=== PATIENT | female | born 2000 | race Caucasian/White ===

== ENCOUNTER → 2020-03-06 14:53 | Outpatient (CLI) | payer SELFPAY | PROVIDERS: Visit Provider Obstetrics & Gynecology | DX: N83.202 Unspecified ovarian cyst, left side (principal) | CPT/HCPCS: 36415; 86304 ==

== ENCOUNTER 2020-03-10 07:07 | Day surgery (SDC) | payer SELFPAY, OTHER ==
--- NOTE | 2020-03-09 17:10 | HP.PCM_ITS ---
History and Physical Date of Admission: 03/10/20 Surgical History and Physical Keyonna Montano, a 19 year old female 0 0 0 0 0, presents for Mini-Lap, possible LSO on at . -- Large Left Pelvic Cyst -- Keyonna is here with LLQ pain. Began suddenly 02-24-20. Went to a clinic closer to home. She was sent to where she had an US and a CT scan. Was told she has an ovarian cyst and to follow up here. No associated vag bleeding. Does have craming and the pain is intermittently and severe. Not sexually active, single. Abdominal pain; left side which began 02-24-20. Keyonna claims it started suddenly and has been present 2 weeks. It occurs intermittantly. It is located in the LLQ of the abdomen. Keyonna characterizes the quality sharp. Associated signs and symptoms are vomiting. Additional comments are: Had CT and US at .; Additional comments are: U/S in our shows 15 cm simple cyst left adnexa (? if attached to ovary); normal uterus and right ovary; 8 cm complex cystic left ovary. MEDICATIONS HISTORY: Patient is also takin. No Meds ALLERGIES: No Known Drug Allergies Infections - Chicken pox and Whooping Cough Illnesses - none Accidents - None Hospitalizations - None Review of Systems: GENERAL - Denies fever, or chills SKIN - Denies skin changes EYES - Denies visual changes EARS - Denies difficulty hearing NOSE - Denies nasal congestion or bleeding MOUTH - Denies sore throat or difficulty swallowing NECK - Denies pain or swelling RESPIRATORY - Denies shortness of breath or wheezing CARDIOVASCULAR - Denies palpitations or chest pain GASTROINTESTINAL - Denies nausea, vomiting, diarrhea, constipation GENITOURINARY - Denies dysuria, frequency of urination, incontinence of urine MUSCULOSKELETAL - Denies joint or muscle pain NEUROLOGICAL - Denies localized numbness or weakness PSYCHIATRIC - Denies depression or anxiety ENDOCRINE - Denies heat or cold intolerance, weight loss or gain HEMATO-IMMUNOLOGIC - Denies excessive bleeding with cuts SOCIAL HISTORY: Alcohol Use - None Smoking - Never Diet - no special diet Lifestyle - single Exercise - active Employer - [employer] Job Description - [employer] Illicit Drug Use - None Sexual Activity - sexually inactive Residence - lives with parents Place of - Mobile Hours Worked - 40 hours per week Control - Not active FAMILY HISTORY: nc MENSTRUAL HISTORY: LMP Known?- Definite Amount/Duration - 5-6 DAYS, Regularity - Regular, Frequency - every 8 weeks days, LMP - 03/06/20, Age Onset Menarche - 13 PAST PREGNANCIES: Total Pregnancies - 0; Full Term Pregnancies - 0; Premature - 0; Abortions, Induced - 0; Abortions, Spontaneous - 0; Ectopics - 0; Multiple Births - 0; Living Children - 0 PHYSICAL EXAM BP- 116/74 Sitting, Right arm, regular cuff Weight- 123.18218 lbs Height- 63.5 inch BMI:21.49 CONSTITUTIONAL - NAD, well nourished, and well developed SKIN - No rash, lesions, or ulcers HEENT - Normocephalic, PERRLA, EOMI NECK - No nodes, no nuchal rigidity and thyroid normal size and texture LYMPH NODES - Palpation of lymph nodes in neck and groins within normal limits LUNGS - CTA x2 without wheezes, crackles or rales CARDIAC - Regular rate and rhythm without rubs, murmurs, or gallops ABDOMEN - moderately tender cystic mass apparent and 22 week size EXTREMITIES - No edema or calf tenderness NEUROLOGICAL - Cranial nerves II-XII grossly intact PSYCHIATRIC - A and O to time, place, person, mood and affect ASSESSMENT/PLAN: 1. Generalized Intra-abdominal And Pelvic Swelling, Mass And Lump Likely large benign left ovarian cyst with possible intermittent torsion. Await CA-125. If benign, plan Mini-Lap and possible LSO. Discussed RBAs and all questions answered.
[2020-03-10] VITALS (13 sets, daily range): BP systolic 116–148; BP diastolic 60–109; PULSE 79–114; RESP 14–16; TEMP 36.1–37.3; O2SAT 99–100; BMI 20.9
--- NOTE | 2020-03-10 | OV_PTH ---
PATIENT: EZ DELANEY [place] [facility] [place][id number] AGE/SX: 19/F ROOM: RE03/10/[address]: Dr. Carlos Alvarenga MD : 2000 BED: DIS: 03/10/2020 SPEC #: [id number] RECD: 03/10/20 13:55 STATUS: LINDSAY МАРИНА #: [id number] SUKI: 03/10/20 00:[address]: Carlos Alvarenga DEPT: SURGICAL PATHOLOGY RECD BY: Jt Roberts ENTERED: 03/10/20 13:55 SP TYPE: OVARY OTHR DR: Dr. Carly Mcdaniels MD Tissues: Left ovary Procedures: Surgery Specimen Level V HEADER OPERATION: Laparotomy, salpingo-oophorectomy and ovarian cystectomy PRE-OP DIAGNOSIS: Generalized intra-abdominal and pelvic swelling, mass and lump TISSUE SUBMITTED: Left ovary, fallopian tube, ovarian cyst MICROSCOPIC DIAGNOSIS Left ovary, ovarian cyst and fallopian tube, salpingo-oophorectomy: Ovary with physiologic cysts. 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 Montaño who concurs with the above diagnosis. IDC:BROOKE MICROSCOPIC DESCRIPTION Slides are reviewed. GROSS DESCRIPTION Received in fixative is one container labeled with the patient's name and designated left fallopian tube, ovary, ovarian cyst. The specimen consists of a fallopian tube and an adjacent collapsed cyst and a cyst which may represent cystic ovary. The entire specimen weighs 118 gm. The external surface of entire specimen is inked black. The fallopian tube measures 5 cm in length and up to 1 cm in diameter. The fimbrial end is identified. A solid nodule is noted at the fimbrial end measuring 0.6 cm in greatest dimension. The collapsed cyst adjacent to the fallopian tube measures 8.5 x 6 x 1 cm. The cyst most likely represents cystic ovary measures 6.5 x 6 x 4 cm. Sections of the fallopian tube are unremarkable. The outer surface of the collapse cyst is smooth without any papillation. Sections of the collapsed cyst reveal multiple cut solid area and papillations. The largest area of papillation/solid area measures 4.5 cm in greatest dimension. The outer surface of the cystic ovary is smooth. Sections contain bloody fluid including blood clot. The cyst wall is smooth. Sections of the cyst wall reveal focally congested cut surfaces. No papillations are identified. Assistant Press Operator sections are submitted in eight cassettes as follows: 1 & 2 - fallopian tube (1 contains fimbrial end and the solid nodule adjacent to the fimbrial end), 36 - collapse cyst with papillation adjacent to the fallopian tube, 7 & 8 - possible cystic ovary. / BROOKE:jack 03/10/20 TC:1 CPT: 78454
[2020-03-10] MEDS: Lactated Ringers 1,000 ML 100 ML IV (07:54)
[2020-03-10 08:03] LABS: Hematocrit 41.8 % (37-47); Hemoglobin 14.4 g/dL (12.0-15.0); Mean Corp Hgb Conc 34.4 g/dL (32-36); Mean Corpuscular Hgb 30.1 pg (27.0-32.0); Mean Corpuscular Volume 87.3 fL (81-99); Mean Platelet Vol. 11.1 fl (6.2-12.0); Platelet Count 203 K/mm3 (150-450); RBC Distribution Width CV 11.9 % (11.6-14.6); RBC Distribution Width SD 38.4 fl (35.1-43.9); Red Blood Count 4.79 M/mm3 (4.2-5.4); White Blood Count 4.7 K/mm3 (4.4-11.0)
[2020-03-10 08:08] LABS: Internal QC Validated? YES +Cl - CLEAR BKGD; Pregnancy, Serum, hCG Quali. NEGATIVE Negative
[2020-03-10 08:16] LABS: Internal QC Validated? YES +Cl - CLEAR BKGD; Pregnancy, Urine Negative Negative
[2020-03-10 08:46] LABS: International Normalized Ratio 1.1; Partial Thromboplast Time 27.8 Seconds (24.1-36.2); Prothrombin Time (Protime)PT. 13.6 SECONDS (11.7-14.9)
[2020-03-10] MEDS: Cefotetan 2 GM in 0.9% NS 100 ML IV (09:50)
--- NOTE | 2020-03-10 10:21 | PCM.OPRPT ---
Report of Operation Date of Procedure: 03/10/20 Pre-Operative Diagnosis: Large Left Ovarian Cyst with Pelvic Pain Post-Operative Diagnosis: Large Left Ovarian Cyst with Pelvic Pain Surgery/Procedure Performed:: Mini Laparotomy and Left Salpingo-Oophorectomy Description of Surgical Findings:: 15 cm simple left ovarian cyst with clear fluid noted and cystic 8 cm ovary. No normal left ovarian tissue visualized. Left fallopian tube was integrated into the cystic structure. Normal right fallopian tube and ovary. No evidence of endometriosis. Normal 5 to 6 cm size uterus. manufacturing quality manager: Tuyet Tirado Type of Anesthesia:: General - Endotracheal Anesthesiologist: Jasvir North Specimen's removed: Large left ovarian cyst and left ovarian tube and ovary Drains: Boles to straight drain--removed after surgery Estimated Blood Loss (mL): Minimal Fluids Replaced: Crystalloid Description of Procedure: Surgeon: Carlos Alvarenga MD, FACOG Indications: This is a 19-year-old patient who his been having problems with pelvic pain for the last month due to an extremely large approximately 22 cm cystic structure in her left adnexa. It is felt that this is likely an ovarian cyst and CA-125 is approximately 56. Given this the patient desires that we proceed with the above procedure with the possibility that the left tube and ovary may need to be removed. She has been counseled regarding the risk and indications of this procedure including the possibility of bleeding, infection, and injury to surrounding structures such as bowel bladder. All questions were answered. Procedure: Patient was taken to the operating room where after induction of general anesthesia she was prepped and draped in the usual sterile fashion. A Boles catheter was placed. The abdomen was entered through a 3-4 cm Mini-Pfannenstiel incision and peritoneal cavity was entered bluntly. The large cyst was identified immediately upon entry of the peritoneal cavity and was noted to be smooth and benign appearing. Given this the cyst was grasped with [place]'s and approximately 0.5 cm incision was made in the cyst and clear fluid was noted. Suction was used to evacuate approximately 800 cc of clear fluid which allowed externalizing the cyst itself. The cyst was on a small pedicle attached to the left ovary which was also cystic and brought through the incision for examination. It was noted that the pedicle of the large cyst was twisted about three quarters of a turn relative to the left ovary. The left fallopian tube, ovary, and cyst were examined and no normal ovarian tissue was visualized; the fallopian tube also was integrated into the cyst and cystic ovary. Given this was decided proceed with a left salpingo-oophorectomy which was accomplished by ligating the base x2 with 0 Vicryl suture. Right fallopian tube and ovary were examined and noted to be normal as was the 5 to 6 cm size uterus. Hemostasis was noted. Rectus abdominis muscles were reapproximated in the midline with interrupted #1 Vicryl suture. #1 Vicryl suture was used to close the fascia in a running fashion and subcutaneous tissue was copiously irrigated with saline solution before closing with 3-0 Vicryl suture. 3-0 Monocryl suture was then used in running fashion to reapproximate skin edges area and Steri-Strips and a 6 inch Mepilex dressing were placed across the incision. Boles catheter was removed. Patient tolerated the procedure well was taken to recovery room in satisfactory condition; sponge instrument and needle counts were all reportedly correct. Estimated blood loss for the case was minimal. Cefotan 2 g IV was given prior to beginning the operative procedure. There were no apparent complications of the surgery. Specimen to pathology was left fallopian tube, ovary, and cyst.
--- NOTE | 2020-03-10 10:36 | DCINST_ITS ---
Discharge Diet: No Restrictions Discharge Activity: Return to Normal Activity - do what you feel comfortable, but do not over do it. You may climb stairs, just use caution and hold the railing., May not drive while taking narcotic pain medications., May Shower, May Take a Tub Bath May resume sexual activity in: 6 weeks - nothing in the vagina. Lifting Restrictions: 25 pounds for 6 weeks. Call your doctor if your incision/area has: Continuous Slow Oozing, Sudden Increased Bleeding, Increased Pain/ Swelling, Increased Redness, Foul Smelling Discharge Call your doctor if you observe: Fever of 101 or Higher, Inability to urinate, Inability to have a bowel movement, Using more than one pad per hour, - - Some vaginal bleeding may be noted for up to 4-8 weeks. Cleanse incision/area with: - - Let the soapy water run over your incision, rinse and pat dry. Additional Dressing/Incision Instructions:: You may remove the outer dressing in 4-5 days The white strips underneath the outer dressing (Steri Strips) on your incision will fall off on their own in 1-2 weeks. You may shower or take a bath over either dressing. Allergies/Adverse Reactions: Allergies No Known Allergies Allergy (Verified 03/10/20 07:34) Medications to take at Discharge Oxycodone [Oxyir] 5 mg PO Q6H PRN PRN 7 Days #14 tablet 03/10/20 The following prescriptions were given: Oxycodone [Oxyir] 5 mg PO Q6H PRN PRN 7 Days #14 tablet PRN Reason: Pain Score 6-10 Transmission Status: Sent to [facility] Primary Care Physician: Carly Mcdaniels MD [Primary Care Provider] - Test Results: Test results from this visit will be discussed in further detail at your follow-up appointment, if applicable. Please Follow Up With: Carlos Alvarenga MD - [phone] When: in 2-3 weeks, please call to make an appointment.
[2020-03-10] MEDS: Lactated Ringers 1,000 ML 15 ML IV (11:33)
--- NOTE | 2020-03-10 11:58 | SUR.PHASEI ---
ON ARRIVAL TO PACU, REPORTEDLY HAD SOME SKIN BLOTCHY REDNESS AFTER DOCUMENT MANAGEMENT SPECIALIST IN O.R. PER GEE, EXCHANGE ADMINISTRATOR, BENADRYL AND DECADRON IN O.R. DENIES ANY ITCHING, DIFFICULTY BREATHING OR SWALLOWING, NO SHORT OF BREATH. NOTED BLOTCHY REDNESS TO ABDOMEN UPON DISCHARGE FROM PACU, ASYMPTOMATIC, NONE NOTED ON BACK OF TORSO. DR DOWNEY NOTIFIED, WILL CONTINUE PLAN OF CARE.
[2020-03-10] MEDS: Acetaminophen 500 MG Tablet 1000 MG PO (14:34)
[2020-03-10] MEDS: oxyCODONE 5 MG Tablet PO (17:13)
== END 2020-03-10 17:42 | disposition home or self-care (01) ==
LOC: SDC 07:10 → AC 07:11
PROVIDERS: Referring Provider Obstetrics & Gynecology; Visit Provider Obstetrics & Gynecology
PROC: (CPT 49000; principal; 2020-03-10 09:15)
DX: D28.2 Benign neoplasm of uterine tubes and ligaments (principal); N83.202 Unspecified ovarian cyst, left side
CPT/HCPCS: 00840; 58661; 36415; 81025; 84703; 85027; 85610; 85730; 86850; 86900; 86901; 87426; 88305; 88307; J7120; J2405

== ENCOUNTER 2021-04-15 08:48 | Outpatient (CLI) | payer OTHER, SELFPAY | END 2021-04-15 23:59 | disposition home or self-care (01) | LOC: LABSPEC 08:48 | PROVIDERS: Visit Provider Obstetrics & Gynecology | DX: Z12.4 Encounter for screening for malignant neoplasm of cervix (principal) | CPT/HCPCS: 88175; G0145 ==